=== PATIENT | male | born 2000 | race African-American/Black ===

== ENCOUNTER 2019-11-22 20:40 | Emergency (ER) | payer OTHER ==
[~2019-11-22] VITALS: Ht 170.2 cm; Wt 115.7 kg
[~2019-11-22 20:40] MED LIST: AMOXICILLIN 50500 MG PO
[2019-11-22 21:22] LABS: EOSINOPHILS 2.5 % (0.0-3.0); HEMATOCRIT 44.7 % (42.0-52.0); LYMPHOCYTES 38.7 % (24.0-44.0); MCH 28.8 pg (26.0-34.0); MCHC 33.4 g/dL (28.0-37.0); MCV 86.1 fL (80.0-100.0); MONOCYTES 9.9 % (1.0-8.0); PLATELET COUNT 276 thou/uL (150-400); POLYS 47.9 % (36.0-66.0); RDW 14.5 % (10.5-14.5); WBC 6.3 thou/uL (4.0-11.0)
[2019-11-22 21:32] LABS: ANION GAP 8 mmol/L (7-16); BUN 11 mg/dL (7-18); CHLORIDE 103 mmol/L (98-107); CO2 28 mmol/L (21-32); CREATININE 1.3 mg/dL (0.7-1.3); GLUCOSE 99 mg/dL (74-106); POTASSIUM 4.2 mmol/L (3.5-5.1); SODIUM 139 mmol/L (136-145)
[2019-11-22 21:42] LABS: ALBUMIN 3.9 g/dL (3.4-5.0); LIPASE 169 U/L (73-393); SGOT 17 U/L (15-37); SGPT 22 U/L (30-65); TOTAL BILIRUBIN 0.3 mg/dL (0.2-1.0); TROPONIN-I <0.06 ng/mL (<0.06)
[2019-11-22 22:10] VITALS: BP 128/81
--- NOTE | 2019-11-23 08:18 | EKG ---
[facility] [place] [address] ELECTROCARDIOGRAM REPORT Name: KECIA PRATT Room #: DEP [facility]..#: [id number] Admission: 11/22/19 Attend Phys: Discharge: 11/22/19 Date of : 89 Report #: [id number] THIS REPORT FOR: cc: MIKEL - Dorota family physician/PCP MIKEL - Dorota family physician/PCP Dexter Herr MD ~ THIS REPORT FOR: //name// [facility] ED Test Date: 2019-11-22 Test Time: 20:47:35 Pat Name: KECIA PRATT Department: Room: Gender: Cv Rn: [facility] : 2000 Requested By: Mikel Wheeler Order Number: [id number] MD: Dexter Herr Measurements Intervals [place] Rate: 117 P: 51 [place]: 129 QRS: 2 QRSD: 90 T: 20 QT: 293 QTc: 409 Interpretive Statements Sinus tachycardia Baseline wander in lead(s) V2 No previous ECG available for comparison Electronically Signed On 11-23-2019 8:18:19 CDT by Dexter Herr [email or web address] <ELECTRONICALLY SIGNED> By: Dexter Herr MD 11/23/19817 46 46 Dexter Herr MD /SHAYY
== END 2019-11-22 22:11 | disposition home or self-care (01) ==
LOC: ER 20:40
PROVIDERS: Emergency Medicine
DX: R07.89 Other chest pain (principal); Z79.2 Long term (current) use of antibiotics; Z88.8 Allergy status to other drugs, medicaments and biological substances